=== PATIENT | female | born 1960 | race Asian ===

== ENCOUNTER 2023-09-11 19:16 | Emergency (ER) | payer OTHER ==
[~2023-09-11] VITALS: Ht 167.6 cm; Wt 59.0 kg
[2023-09-11 19:30] VITALS: BP 143/90; PULSE 85; RESP 17; TEMP 97.8; O2SAT 98
[2023-09-11] MEDS ORDERED: KETOROLAC 30 MG/ML VIAL IM ONE (20:15)
[2023-09-11] MEDS ORDERED: HYDROcodone/APAP 5/325 MG 1 TAB TAB PO ONE (20:15)
[2023-09-11 20:41] LABS: APPEARANCE,URINE CLEAR (CLEAR); BILIRUBIN,URINE NEGATIVE (NEGATIVE); BLOOD, URINE 1+ (NEGATIVE); COLOR,URINE YELLOW (YELLOW); LEUKOCYTE ESTERASE ,URINE NEGATIVE (NEGATIVE); NITRITE, URINE NEGATIVE (NEGATIVE); PROTEIN,URINE NEGATIVE (NEGATIVE); UGLUCOSE NEGATIVE (NEGATIVE); UROBILINOGEN,URINE 0.2 EU/dL (0.2 - 1)
[2023-09-11 20:52] LABS: BACTERIA,URINE FEW /HPF (None Seen); SQUAMOUS EPITHELIAL CELL,UR 0-3 (FEW) /LPF (0-3 (FEW)); WBC,URINE 0-5 /HPF (0-5)
[2023-09-11 21:30] LABS: BASOPHILS % (AUTO) 0.5 % (0.0-2.0); EOSINOPHILS # (AUTO) 0.1 K/uL (0-0.4); EOSINOPHILS % (AUTO) 0.9 % (0.0-4.0); HEMATOCRIT 39.4 % (36-48); HEMOGLOBIN 13.5 g/dL (12.0-16.0); LYMPHOCYTES # (AUTO) 1.3 K/uL (2.5-16.5); LYMPHOCYTES % (AUTO) 22.4 % (20.5-51.1); MEAN CORPUSCULAR HEMOGLOBIN 31 pg (27-31); MEAN CORPUSCULAR HGB CONC 34 g/dL (33-37); MEAN CORPUSCULAR VOLUME 91.5 fL (80-94); MONOCYTES # (AUTO) 0.6 K/uL (0.8-1.0); MONOCYTES % (AUTO) 10.5 % (1.7-9.3); NEUTROPHILS # (AUTO) 3.8 K/uL (1.8-7.7); NEUTROPHILS % (AUTO) 65.7 % (42.2-75.2); PLATELET COUNT (AUTO) 148 K/uL (140-450); RED CELL DISTRIBUTION WIDTH 13.2 % (11.6-13.7); WHITE BLOOD COUNT (AUTO) 5.8 K/uL (4.8-10.8)
[2023-09-11 21:43] LABS: ALBUMIN 3.9 g/dL (3.4-5.0); ANION GAP 10.7 (8-16); CALCIUM 8.9 mg/dL (8.5-10.1); CARBON DIOXIDE 30.2 mmol/L (21-32); CREATININE 0.7 mg/dL (0.6-1.3); POTASSIUM 3.9 mmol/L (3.5-5.1); TOTAL BILIRUBIN 0.8 mg/dL (0.0-1.0); TOTAL PROTEIN, SERUM 7.8 g/dL (6.4-8.2)
[2023-09-11] MEDS ORDERED: HYDROcodone/APAP 5/325 MG 1 TAB TAB ONE (22:29)
[2023-09-11] MEDS ORDERED: KETOROLAC 30 MG/ML VIAL ONE (22:29)
[2023-09-11] MEDS ORDERED: MORPHINE SULFATE 4 MG/ML SYR IVP PRN (23:50)
[2023-09-12] MEDS ORDERED: DOCUSATE SODIUM 100 MG GELCAP PO PRN (00:50)
[2023-09-12] MEDS ORDERED: HYDROcodone/APAP 7.5/325 MG 1 TAB PO PRN (00:50)
[2023-09-12] MEDS ORDERED: POTASSIUM CHLORIDE 10 MEQ TABER PO PRN (00:50)
[2023-09-12] MEDS ORDERED: ACETAMINOPHEN 325 MG TAB PO PRN (00:50)
[2023-09-12] MEDS ORDERED: NACL 0.9% 1,000 ML IV SCH (00:50)
[2023-09-12] MEDS ORDERED: ZOLPIDEM 5 MG TAB PO PRN (00:50)
[2023-09-12] MEDS ORDERED: ONDANSETRON 4 MG/2 ML VIAL IM/IVP PRN (00:50)
[2023-09-12] MEDS ORDERED: guaiFENesin DM 200/20 MG-10 ML 10 ML UDC PO PRN (00:50)
[2023-09-12] MEDS ORDERED: IBUP-2213 PO (01:03)
[2023-09-12] MEDS ORDERED: HYDR-5080 PO (01:03)
[2023-09-12] MEDS ORDERED: PANTOPRAZOLE 40 MG TABEC PO SCH (09:00)
== END 2023-09-12 01:51 | disposition home or self-care (01) ==
LOC: MED 19:16 → UNDOADMIN 09-12 00:51 → MTU 09-12 00:51 → UNDODEPER 09-12 01:27 → UNDODISIN 09-12 01:51 → MTU 09-12 01:51
DX: R31.9 Hematuria, unspecified (principal); M54.9 Dorsalgia, unspecified; I10 Essential (primary) hypertension; Z79.899 Other long term (current) drug therapy; Z79.1 Long term (current) use of non-steroidal anti-inflammatories (NSAID)
CPT/HCPCS: 36415; 72100; 74176; 80053; 81001; 85025; 96372; 96374; 99285; J1885; J2270

== ENCOUNTER 2023-09-27 20:42 | Inpatient (IN) | payer OTHER ==
[~2023-09-27] VITALS: Ht 170.2 cm; Wt 53.5 kg
[2023-09-27 20:42] VITALS: BP 112/72; PULSE 62; RESP 16; TEMP 98.3; O2SAT 98
[~2023-09-27 20:42] MED LIST: HYDR-5080 PO; IBUP-2213 PO
[2023-09-27 22:16] LABS: BASOPHILS % (AUTO) 0.5 % (0.0-2.0); EOSINOPHILS % (AUTO) 0.7 % (0.0-4.0); HEMATOCRIT 35.3 % (36-48); HEMOGLOBIN 12.2 g/dL (12.0-16.0); LYMPHOCYTES % (AUTO) 16.4 % (20.5-51.1); MEAN CORPUSCULAR HEMOGLOBIN 31 pg (27-31); MEAN CORPUSCULAR HGB CONC 35 g/dL (33-37); MEAN CORPUSCULAR VOLUME 89.9 fL (80-94); MONOCYTES # (AUTO) 0.6 K/uL (0.8-1.0); MONOCYTES % (AUTO) 9.2 % (1.7-9.3); NEUTROPHILS # (AUTO) 4.7 K/uL (1.8-7.7); NEUTROPHILS % (AUTO) 73.2 % (42.2-75.2); PLATELET COUNT (AUTO) 126 K/uL (140-450); RED BLOOD CELL COUNT(AUTO) 3.93 MIL/uL (4.20-5.40); RED CELL DISTRIBUTION WIDTH 13.2 % (11.6-13.7); WHITE BLOOD COUNT (AUTO) 6.4 K/uL (4.8-10.8)
[2023-09-27 22:33] LABS: FLU A ANTIGEN negative (NEGATIVE); FLU B ANTIGEN NEGATIVE (NEGATIVE)
[2023-09-27 22:41] LABS: APPEARANCE,URINE CLEAR (CLEAR); BILIRUBIN,URINE NEGATIVE (NEGATIVE); BLOOD, URINE 3+ (NEGATIVE); COLOR,URINE YELLOW (YELLOW); LEUKOCYTE ESTERASE ,URINE 1+ (NEGATIVE); NITRITE, URINE NEGATIVE (NEGATIVE); PH,URINE 6.5 (5.0-9.0); PROTEIN,URINE TRACE (NEGATIVE); UGLUCOSE NEGATIVE (NEGATIVE); UROBILINOGEN,URINE 0.2 EU/dL (0.2 - 1)
[2023-09-27 22:41] LABS: ALBUMIN 3.7 g/dL (3.4-5.0); ANION GAP 9.3 (8-16); CALCIUM 8.9 mg/dL (8.5-10.1); CARBON DIOXIDE 30.1 mmol/L (21-32); CREATININE 0.7 mg/dL (0.6-1.3); POTASSIUM 3.4 mmol/L (3.5-5.1); TOTAL BILIRUBIN 0.8 mg/dL (0.0-1.0); TOTAL PROTEIN, SERUM 7.6 g/dL (6.4-8.2)
[2023-09-27 22:44] LABS: INR 1.11 (0.8-1.2); PROTHROMBIN TIME 11.6 secs (10.8-13.4)
[2023-09-27 22:45] LABS: CREATINE KINASE, TOTAL 179 U/L (26-192)
[2023-09-27 22:45] LABS: BACTERIA,URINE 10-30 (MOD) /HPF (None Seen); MUCUS,URINE 1+ /LPF (None Seen); SQUAMOUS EPITHELIAL CELL,UR 0-3 (FEW) /LPF (0-3 (FEW))
[2023-09-27 22:46] LABS: LACTIC ACID 1.3 mmol/L (0.4-2.0)
[2023-09-28] MEDS ORDERED: NACL 0.9% 1,000 ML IV ONE (01:30)
[2023-09-28] MEDS ORDERED: cefTRIAXone 1,000 MG VIAL ONE ×2 (01:44→08:09)
[2023-09-28] MEDS ORDERED: ASPIRIN 325 MG TABEC PO ONE (01:47)
[2023-09-28] MEDS: ASPIRIN 325 MG TABEC PO SCH (01:49)
[2023-09-28] MEDS ORDERED: guaiFENesin DM 200/20 MG-10 ML 10 ML UDC PO PRN (05:55)
[2023-09-28] MEDS ORDERED: ONDANSETRON 4 MG/2 ML VIAL IM/IVP PRN (05:55)
[2023-09-28] MEDS ORDERED: DOCUSATE SODIUM 100 MG GELCAP PO PRN (05:55)
[2023-09-28] MEDS ORDERED: ACETAMINOPHEN 325 MG TAB PO PRN (05:55)
[2023-09-28] MEDS ORDERED: POTASSIUM CHLORIDE 10 MEQ TABER PO PRN (05:55)
[2023-09-28] MEDS ORDERED: ZOLPIDEM 5 MG TAB PO PRN (05:55)
[2023-09-28 06:55] LABS: BASOPHILS % (AUTO) 0.6 % (0.0-2.0); EOSINOPHILS # (AUTO) 0.1 K/uL (0-0.4); EOSINOPHILS % (AUTO) 1.1 % (0.0-4.0); HEMATOCRIT 34.2 % (36-48); HEMOGLOBIN 11.7 g/dL (12.0-16.0); LYMPHOCYTES # (AUTO) 0.8 K/uL (2.5-16.5); LYMPHOCYTES % (AUTO) 16.8 % (20.5-51.1); MEAN CORPUSCULAR HEMOGLOBIN 31 pg (27-31); MEAN CORPUSCULAR HGB CONC 34 g/dL (33-37); MEAN CORPUSCULAR VOLUME 90.4 fL (80-94); MONOCYTES # (AUTO) 0.6 K/uL (0.8-1.0); MONOCYTES % (AUTO) 11.8 % (1.7-9.3); NEUTROPHILS # (AUTO) 3.5 K/uL (1.8-7.7); NEUTROPHILS % (AUTO) 69.7 % (42.2-75.2); PLATELET COUNT (AUTO) 125 K/uL (140-450); RED BLOOD CELL COUNT(AUTO) 3.78 MIL/uL (4.20-5.40); RED CELL DISTRIBUTION WIDTH 13.1 % (11.6-13.7)
[2023-09-28 07:31] LABS: ALBUMIN 3.4 g/dL (3.4-5.0); ANION GAP 12.1 (8-16); CALCIUM 8.5 mg/dL (8.5-10.1); CARBON DIOXIDE 26.5 mmol/L (21-32); CREATININE 0.6 mg/dL (0.6-1.3); POTASSIUM 3.6 mmol/L (3.5-5.1); TOTAL BILIRUBIN 0.8 mg/dL (0.0-1.0); TOTAL PROTEIN, SERUM 7.2 g/dL (6.4-8.2)
[2023-09-28] MEDS: PANTOPRAZOLE 40 MG TABEC PO SCH (08:15)
[2023-09-28] MEDS: HYDROcodone/APAP 7.5/325 MG 1 TAB PO PRN ×3 (13:00→22:54)
[2023-09-28 21:35] VITALS: PULSE 75; RESP 14; O2SAT 99
[2023-09-28 21:41] VITALS: PULSE 75; RESP 18; O2SAT 96
[2023-09-29] VITALS: BP 121/75; PULSE 62; PULSE 77; RESP 18; TEMP 97.8; O2SAT 96
[2023-09-29 04:00] VITALS: BP 121/75; PULSE 55; PULSE 62; RESP 17; TEMP 97.7; O2SAT 97
[2023-09-29 07:10] LABS: BASOPHILS % (AUTO) 0.5 % (0.0-2.0); EOSINOPHILS # (AUTO) 0.1 K/uL (0-0.4); EOSINOPHILS % (AUTO) 1.1 % (0.0-4.0); HEMATOCRIT 33.8 % (36-48); HEMOGLOBIN 11.5 g/dL (12.0-16.0); LYMPHOCYTES # (AUTO) 1.5 K/uL (2.5-16.5); LYMPHOCYTES % (AUTO) 22.9 % (20.5-51.1); MEAN CORPUSCULAR HEMOGLOBIN 31 pg (27-31); MEAN CORPUSCULAR HGB CONC 34 g/dL (33-37); MONOCYTES # (AUTO) 0.7 K/uL (0.8-1.0); MONOCYTES % (AUTO) 11.5 % (1.7-9.3); PLATELET COUNT (AUTO) 128 K/uL (140-450); RED BLOOD CELL COUNT(AUTO) 3.72 MIL/uL (4.20-5.40); RED CELL DISTRIBUTION WIDTH 13.4 % (11.6-13.7); WHITE BLOOD COUNT (AUTO) 6.3 K/uL (4.8-10.8)
[2023-09-29 08:00] VITALS: BP 131/85; PULSE 75; PULSE 79; RESP 18; TEMP 97; O2SAT 99
[2023-09-29] MEDS: ASPIRIN 325 MG TABEC PO SCH (09:00)
[2023-09-29] MEDS: PANTOPRAZOLE 40 MG TABEC PO SCH (09:11)
[2023-09-29] MEDS: HYDROcodone/APAP 7.5/325 MG 1 TAB PO PRN ×3 (09:12→20:33)
[2023-09-29 10:07] LABS: ALBUMIN 3.6 g/dL (3.4-5.0); ANION GAP 17.1 (8-16); CALCIUM 8.9 mg/dL (8.5-10.1); CARBON DIOXIDE 24.2 mmol/L (21-32); CREATININE 0.7 mg/dL (0.6-1.3); POTASSIUM 3.3 mmol/L (3.5-5.1); TOTAL BILIRUBIN 0.8 mg/dL (0.0-1.0); TOTAL PROTEIN, SERUM 7.6 g/dL (6.4-8.2)
[2023-09-29 12:00] VITALS: BP 101/72; PULSE 78; PULSE 96; RESP 18; TEMP 98.1; O2SAT 98
[2023-09-29 16:00] VITALS: BP 100/59; PULSE 65; PULSE 66; PULSE 83; RESP 18; TEMP 98.7; O2SAT 98
[2023-09-29 20:00] VITALS: BP 108/66; PULSE 70; RESP 16; RESP 18; TEMP 97.6; O2SAT 96; O2SAT 97
[2023-09-30] VITALS: BP 112/72; PULSE 66; PULSE 82; RESP 18; TEMP 98; O2SAT 98
[2023-09-30 04:00] VITALS: BP 136/88; PULSE 64; PULSE 92; RESP 16; TEMP 97.8; O2SAT 97
[2023-09-30 07:06] LABS: BASOPHILS # (AUTO) 0.1 K/uL (0.00-0.22); BASOPHILS % (AUTO) 0.7 % (0.0-2.0); EOSINOPHILS # (AUTO) 0.1 K/uL (0-0.4); EOSINOPHILS % (AUTO) 1.2 % (0.0-4.0); HEMATOCRIT 29.9 % (36-48); HEMOGLOBIN 10.2 g/dL (12.0-16.0); LYMPHOCYTES # (AUTO) 1.2 K/uL (2.5-16.5); MEAN CORPUSCULAR HEMOGLOBIN 31 pg (27-31); MEAN CORPUSCULAR HGB CONC 34 g/dL (33-37); MEAN CORPUSCULAR VOLUME 90.9 fL (80-94); MONOCYTES # (AUTO) 0.8 K/uL (0.8-1.0); NEUTROPHILS # (AUTO) 4.9 K/uL (1.8-7.7); NEUTROPHILS % (AUTO) 70.1 % (42.2-75.2); PLATELET COUNT (AUTO) 116 K/uL (140-450); RED BLOOD CELL COUNT(AUTO) 3.29 MIL/uL (4.20-5.40); RED CELL DISTRIBUTION WIDTH 13.6 % (11.6-13.7)
[2023-09-30 07:35] LABS: ALBUMIN 3.3 g/dL (3.4-5.0); ANION GAP 12.1 (8-16); CALCIUM 8.5 mg/dL (8.5-10.1); CARBON DIOXIDE 28.9 mmol/L (21-32); CREATININE 0.6 mg/dL (0.6-1.3); TOTAL BILIRUBIN 0.7 mg/dL (0.0-1.0)
[2023-09-30 08:00] VITALS: BP 112/63; PULSE 62; PULSE 80; RESP 18; TEMP 98; O2SAT 98
[2023-09-30] MEDS: HYDROcodone/APAP 7.5/325 MG 1 TAB PO PRN ×2 (08:31→14:25)
[2023-09-30] MEDS: PANTOPRAZOLE 40 MG TABEC PO SCH (08:31)
[2023-09-30] MEDS: ASPIRIN 325 MG TABEC PO SCH (09:00)
[2023-09-30 13:28] VITALS: BP 103/56; PULSE 71; PULSE 83; RESP 18; TEMP 97.4; O2SAT 100
[2023-09-30 16:00] VITALS: BP 120/67; PULSE 104; PULSE 88; RESP 18; TEMP 97.7; O2SAT 99
[2023-09-30 16:23] VITALS: BP 103/56; PULSE 83; RESP 18; TEMP 97.4
[2023-09-30] MEDS ORDERED: LEVO-481 PO (18:43)
== END 2023-09-30 19:15 | disposition home or self-care (01) | DRG 689 ==
LOC: MED 20:42 → MTU 09-28 05:56
PROVIDERS: ADMIT Student in an Organized Health Care Education/Training Program; ATTEND Student in an Organized Health Care Education/Training Program
DX: N39.0 Urinary tract infection, site not specified (principal); I21.A1 Myocardial infarction type 2; C79.9 Secondary malignant neoplasm of unspecified site; Z20.822 Contact with and (suspected) exposure to COVID-19; E78.00 Pure hypercholesterolemia, unspecified; K21.9 Gastro-esophageal reflux disease without esophagitis; I10 Essential (primary) hypertension; Z79.891 Long term (current) use of opiate analgesic; Z79.899 Other long term (current) drug therapy
CPT/HCPCS: 36415; 71045; 71275; 72170; 80053; 81001; 82550; 83605; 83880; 84484; 85025; 85379; 85610; 85730; 87040; 87081; 87086; 93005; 93970; 96365; 97116; 97163-GP; 99285; J0696; J1644; J7060; Q0092; Q9967